=== PATIENT | male | born 1940 | race Caucasian/White ===

== ENCOUNTER 2018-05-29 12:07 | Day surgery (SDC) | payer MEDICARE ==
[~2018-05-29 12:07] MED LIST: SODIUM CHLORIDE 0.9% 1,000 ML IV SCH; ceFAZolin 1,000 MG in SODIUM CHLORIDE 0.9% IRRIGATIO 250 ML IRRIGATION ONE; ceFAZolin IN SWFI 2 GM/20 ML SYRINGE IVP ONE
[2018-05-29] MEDS ORDERED: IOPAMIDOL-370 50ML BTL INJ ONE (16:55)
[2018-05-29] MEDS ORDERED: LIDOCAINE 1% INJ 10MG/ML (20 ML MDV) ONE ×2 (17:02)
[2018-05-29] MEDS: MIDAZOLAM 2 MG/2 ML VIAL IV ONE ×2 (17:08→17:30)
[2018-05-29] MEDS ORDERED: fentaNYL (PF) 50 MCG/ML 2 ML AMP ONE ×2 (17:13→18:45)
[2018-05-29] MEDS: fentaNYL (PF) 50 MCG/ML 2 ML AMP IV ONE ×2 (17:16→18:19)
[2018-05-29] MEDS ORDERED: LIDOCAINE 1% INJ 10MG/ML (20 ML MDV) SQ ONE (17:19)
[2018-05-29] MEDS: LIDOCAINE 1% INJ 10MG/ML (20 ML MDV) SQ ONE ×2 (17:27→17:31)
[2018-05-29] MEDS ORDERED: fentaNYL (PF) 50 MCG/ML 2 ML AMP IV ONE (18:47)
[2018-05-29] MEDS ORDERED: ACETAMINOPHEN IV (For NPO) 1,000 MG in EMPTY BAG 1 BAG IVPB ONE (19:07)
[2018-05-29] MEDS ORDERED: ACETAMINOPHEN TAB 325 MG TAB PO PRN (19:07)
[2018-05-29] MEDS ORDERED: ALBUTEROL NEBULIZED 2.5 MG/3 ML INHALATION PRN (19:09)
--- NOTE | 2018-05-29 19:23 | P.PRLE ---
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 He underwent a biventricular pacemaker with an atrial lead, RV lead as well as a His bundle pacing lead He paces the ventricle primarily why the His bundle and therefore there is simultaneous electrical activation of the right and left ventricles with a narrow QRS Hopefully this device probably improves his exercise capacity but also preserves his LV function in the long run I have added carvedilol 3.125 g twice daily to his current regimen and he should be considered for PC SK 9 inhibitors since he is intolerant of multiple statins Thank you for entrusting me with the care of the patient Warm regards Sincerely Marco Miller
[2018-05-29 19:51] VITALS: BMI 29.9
[2018-05-29] MEDS: CARVEDILOL 3.125 MG TAB PO SCH (20:54)
[2018-05-29] MEDS: ceFAZolin IN SWFI 2 GM/20 ML SYRINGE IVP SCH (20:54)
[2018-05-29] MEDS ORDERED: amLODIPine 10 MG TAB PO SCH (21:00)
[2018-05-29] MEDS ORDERED: LOSARTAN 50 MG TAB PO SCH (21:00)
[2018-05-29 22:45] VITALS: RESP 18
[2018-05-30] MEDS: HYDROcodone/APAP 5-325MG 1 EACH TAB PO PRN ×2 (03:58→12:52)
[2018-05-30] MEDS: ceFAZolin IN SWFI 2 GM/20 ML SYRINGE IVP SCH ×3 (03:59→16:06)
--- NOTE | 2018-05-30 08:02 | P.DS ---
Providers Attending physician: Marco Miller Primary care physician: [facility] Course: Patient is doing well. He is resting comfortably in bed but he has been walking up to the bathroom. No dizziness lightheadedness no palpitations no swelling no bruising over the pacemaker site Blood pressure 153/76. 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 Doshi Also follow up in the device clinic in 5 days Instructions given Patient Condition at Discharge: Stable Plan - Discharge Summary Discharge Rx Participant: Yes New Discharge Prescriptions: New RX: Carvedilol [Coreg] 3.125 mg PO BID #180 tablet No Action Fluticasone/Salmeterol [Advair 100-50 Diskus] 1 puff INHALATION BID Olmesartan Medoxomil [Benicar] 40 mg PO HS amLODIPine [Norvasc] 10 mg PO HS RX: Aspirin 325 mg PO DAILY Albuterol Sulfate [Proair Hfa] 2 puff INHALATION Q6HR PRN PRN Reason: Shortness Of Breath Discharge Medication List Fluticasone/Salmeterol [Advair 100-50 Diskus] 1 puff INHALATION BID 12/26/13 [ History] Olmesartan Medoxomil [Benicar] 40 mg PO HS 12/26/13 [History] Albuterol Sulfate [Proair Hfa] 2 puff INHALATION Q6HR PRN 05/24/18 [History] RX: Aspirin 325 mg PO DAILY 05/24/18 [History] amLODIPine [Norvasc] 10 mg PO HS 05/24/18 [History] RX: Carvedilol [Coreg] 3.125 mg PO BID #180 tablet 05/29/18 [Rx] Follow up Appointment(s)/Referral(s): Duarte Doshi MD [STAFF PHYSICIAN] - 1 Week (Device clinic follow-up in 5 days Follow-up with Dr. Doshi in 6-8 weeks) Activity/Diet/Wound Care/Special Instructions: PATIENT EDUCATION MATERIAL Instructions following a heart rhythm device implant. 1. Keep dressing DRY for 5 DAYS. You may cover the area with Saran or Cling Wrap, prior to a shower. 2. The dressing will be removed in the Device Clinic at [facility]. Absorbable sutures were used to close the wound. 3. Avoid raising the left arm above the shoulder level. 4 week restriction 4. Avoid arm movements, like backscratching, rubbing the head, or pulling on a cord. 4 weeks restriction 5. Gentle range of motion movements of the shoulder, closest to the incision should be performed to avoid a frozen shoulder. (Pendulum exercises of the shoulder) 6. The opposite arm may be used freely. 7. Avoid driving for 7 days. 8. Avoid activities such as golfing, swimming, weed whacking, lifting more than 10 pounds weight, bowling, gymnastics and weight training/lifting. (6 weeks restriction) 9. Activities such as wood chopping with an axe, pull-ups in the gymnasium, power lifting, arc-welding, being close to home induction cooktops will always be a problem. 10. Arm sling is only a reminder not to raise the arm above the head. You do not need to keep the arm completely immobilized. Your free to move the arm and use it and for normal activities. In case of any problems, please call [facility], Horacio Samaniego, @ [phone], Attention: Device Clinic Device clinic follow-up in 5 days Follow-up with primary order to delivery supervisor in 2 months, Dr. Doshi New medication Carvedilol 3.125 mg twice daily
[2018-05-30] MEDS: CARVEDILOL 3.125 MG TAB PO SCH ×2 (08:09→16:54)
--- NOTE | 2018-05-30 08:41 | CE ---
CARDIAC ELECTROPHYSIOLOGY REPORT Bonifacio Hollis is a 78-year-old male patient who has symptomatic 2:1 AV block with bradycardia, tiredness, fatigue and shortness of breath on exertion. He has known underlying coronary artery disease, preserved LV systolic function. He is brought in for biventricular pacemaker implantation since the likelihood of RV pacing is nearly 100% on standard dual-chamber pacemaker. The patient was brought to the EP lab in a fasting state. Written informed consent was obtained prior to the procedure. The left shoulder area was prepped and draped as per protocol and 1% lidocaine was used for local anesthesia. A 4 cm incision was made parallel to the deltopectoral groove, about 1.5 cm medial to it incision carried down to the level of the pectoralis muscle. A subfascial pocket was made. Hemostasis was assured. The left axillary vein was accessed at 3 different points under fluoroscopy and via appropriately-sized introducer sheaths 3 leads were positioned in the right heart. Atrial lead was a Medtronic model #5076, 52 cm in length and serial #[id number]. The P waves were 2.6 mV. Pacing impedance 875 ohms. Pacing threshold 0.6 V at 0.5 milliseconds. Ten volt test negative. The RV lead was positioned in the mid RV septum and screwed in. This was a Medtronic model #5076, 58 cm in length, serial #[id number]. R-waves 10 mV. Pacing impedance 1129 ohms. Pacing threshold 0.5 V at 0.5 milliseconds. The His bundle lead, model #3830, 69 cm in length and serial #[id number] was screwed in the His bundle. The His bundle area was mapped and the lead was screwed in. Selective capture was noted. Threshold 2.1 V at 1 millisecond. Pacing impedance 636 ohms. After the end of the procedure, the threshold was improved to 1.7 V at 1 millisecond. The device was then programmed to DDD mode with an AV delay of 150 milliseconds, HV of about 50 milliseconds with His bundle pacing turned on. The patient tolerated the procedure well without any acute complications. RESULT: Successful biventricular pacemaker implantation with physiologic septal pacing/His bundle pacing for symptomatic 2:1 heart block with bradycardia. MMODL / IJN: [id number] /
[2018-05-30] MEDS ORDERED: ASPIRIN 325 MG TAB PO SCH (09:00)
--- NOTE | 2018-05-30 10:05 | XR ---
EXAMINATION TYPE: XR chest 2V DATE OF EXAM: 05/30/2018 COMPARISON: 12/26/2013 INDICATION: Lead placement check TECHNIQUE: Frontal and lateral views of the chest are obtained. FINDINGS: The heart size is enlarged. The pulmonary vasculature is normal. The lungs are clear. No pneumothorax is evident. Pacemaker is placed. Leads are present. Evaluation of the ventricular lead placement is recommended. IMPRESSION: 1. No pneumothorax post pacemaker placement. 2. Evaluation of lead placement recommended.
[2018-05-30 11:50] VITALS: BP 157/72; PULSE 52; TEMP 97.5
== END 2018-05-30 17:00 | disposition home or self-care (01) ==
LOC: CATHEP 12:07 → 1SOBS 18:58 → CATHEP 05-30 17:00
PROVIDERS: ATTEND Internal Medicine Clinical Cardiac Electrophysiology
DX: I44.1 Atrioventricular block, second degree (principal); I49.5 Sick sinus syndrome; I10 Essential (primary) hypertension; I08.0 Rheumatic disorders of both mitral and aortic valves; I25.110 Atherosclerotic heart disease of native coronary artery with unstable angina pectoris; E78.2 Mixed hyperlipidemia; I25.2 Old myocardial infarction; Z95.5 Presence of coronary angioplasty implant and graft; Z79.82 Long term (current) use of aspirin; Z79.899 Other long term (current) drug therapy; Z79.51 Long term (current) use of inhaled steroids; Z82.49 Family history of ischemic heart disease and other diseases of the circulatory system; Z88.8 Allergy status to other drugs, medicaments and biological substances
CPT/HCPCS: 33208; 71046; C1769 ×4; C1892; C1898; C2621; J2250; J0690 ×3; J2001; J3010; J0131; Q9967

== ENCOUNTER 2019-02-08 11:39 | Day surgery (SDC) | payer MEDICARE ==
[2019-02-06 11:32] VITALS: BMI 29.7
[~2019-02-08 11:39] MED LIST changes: +LACTATED RINGERS 1,000 ML IV SCH; +LIDOCAINE 1% 20 ML VIAL (10MG/ML) FOR IV START INTRADERMA PRN; -SODIUM CHLORIDE 0.9% 1,000 ML IV SCH; -ceFAZolin 1,000 MG in SODIUM CHLORIDE 0.9% IRRIGATIO 250 ML IRRIGATION ONE; -ceFAZolin IN SWFI 2 GM/20 ML SYRINGE IVP ONE
[2019-02-08 12:14] VITALS: TEMP 97.4
[2019-02-08] MEDS ORDERED: PROPOFOL 10 MG/ML 20 ML VIAL IV ONE (12:33)
--- NOTE | 2019-02-08 13:11 | P.OP ---
Date of Procedure: 02/08/19 Preoperative Diagnosis: Positive ColoGuard test Postoperative Diagnosis: Positive ColoGuard test Diverticulosis Procedure(s) Performed: Colonoscopy Surgeon: Livia Torres Pathology: none sent Condition: stable Disposition: same day Indications for Procedure: This is a 79-year-old male that presented to the surgery clinic after finding of a positive cologuard test. He denied any gross blood in his stool. Secondary to this plan was for colonoscopy. Operative Findings: Diverticulosis Cecal cap was unable to be completely visualized Description of Procedure: The patient was brought into the endoscopy suite. He was then placed in left lateral cutis position and adequate sedation was achieved using conscious sedation. A digital rectal exam was performed and mild hemorrhoids were palpated. An endoscope was then placed in the rectum and advanced to the level of the cecum. At this point, multiple attempts were made to get into the cecal cap and cecum, however this was unsuccessful. It was the most proximal 10 cm of the colon that were not clearly visualized. The prep was good. The colonoscope was then slowly withdrawn, examining for any mucosal abnormalities. The ascending, transverse, descending and sigmoid colon were visualized adequately. There were no large obvious neoplastic lesions about the colon. There were no evidence of polyps throughout the colon. There was evidence of diverticulosis scattered throughout the sigmoid colon. Retroflexion was performed in the rectum and mild internal hemorrhage or visible. Excess air was removed, the colonoscope withdrawn and procedure terminated. The patient was then transferred to the recovery unit in stable condition. I will recommend barium enema for full visualization of the cecum for the patient.
[2019-02-08 13:47] VITALS: BP 132/77; PULSE 60; RESP 18
== END 2019-02-08 14:43 | disposition home or self-care (01) ==
LOC: ORWHC2ENDO 11:39
PROVIDERS: ATTEND Surgery
DX: K57.30 Diverticulosis of large intestine without perforation or abscess without bleeding (principal); K64.9 Unspecified hemorrhoids; K62.5 Hemorrhage of anus and rectum; J45.909 Unspecified asthma, uncomplicated; R01.1 Cardiac murmur, unspecified; I25.10 Atherosclerotic heart disease of native coronary artery without angina pectoris; I10 Essential (primary) hypertension; E78.00 Pure hypercholesterolemia, unspecified; N42.9 Disorder of prostate, unspecified; Z68.30 Body mass index [BMI] 30.0-30.9, adult; Z95.0 Presence of cardiac pacemaker; Z95.5 Presence of coronary angioplasty implant and graft; Z80.0 Family history of malignant neoplasm of digestive organs; Z79.82 Long term (current) use of aspirin; Z79.51 Long term (current) use of inhaled steroids; Z79.899 Other long term (current) drug therapy
CPT/HCPCS: 45378; J2704

== ENCOUNTER 2019-02-08 15:10 | Emergency (ER) | payer MEDICARE ==
[2019-02-08 15:16] VITALS: RESP 18; TEMP 97.4
[2019-02-08] MEDS ORDERED: DICYCLOMINE 10 MG CAP PO STA (15:29)
[2019-02-08] MEDS ORDERED: Acetaminophen-Codeine 300-30mg TAB PO STA (15:30)
--- NOTE | 2019-02-08 15:33 | ED ---
Abdominal Pain HPI <Matthias Roach - Last Filed: 02/08/19 18:13> - General Source: patient, family Mode of arrival: ambulatory Limitations: no limitations <Doyle Wan - Last Filed: 02/09/19 01:30> - General Chief Complaint: Abdominal Pain Stated Complaint: abdominal pain-post colonoscopy Time Seen by Provider: 02/08/19 15:18 - History of Present Illness Initial Comments: Patient is a 79-year-old male presenting to emergency Department with chief complaint of abdominal pain. Patient reports he had a colonoscopy performed about 3 hours prior to ED arrival. Patient reports after the procedure he developed abdominal pain that has not resolved since. Patient reports abdominal distention and bloating with abdominal pain mostly located on the right upper and right lower quadrant. Patient reports that he is not able to pass any gas. Patient reports the pain is cramping in nature and constant. Patient denies any nausea or vomiting. (Doyle Wan) - Related Data Home Medications Medication Instructions Recorded Confirmed Fluticasone/Salmeterol [Advair 1 puff INHALATION DAILY 12/26/13 02/08/19 100-50 Diskus] Albuterol Sulfate [Proair Hfa] 2 puff INHALATION Q6HR PRN 05/24/18 02/06/19 Aspirin 325 mg PO DAILY 05/24/18 02/08/19 amLODIPine [Norvasc] 10 mg PO HS 05/24/18 02/06/19 Valsartan 80 mg PO HS 02/06/19 02/06/19 Allergies Allergy/AdvReac Type Severity Reaction Status Date / Time Biondgc-Cua-Sbh Reductase Allergy JOINT PAIN Verified 02/08/19 15:13 Inhibitor Review of Systems ROS Other: All systems not noted in ROS Statement are negative. <Matthias Roach - Last Filed: 02/08/19 18:13> ROS Other: All systems not noted in ROS Statement are negative. <Doyle Wan - Last Filed: 02/09/19 01:30> ROS Statement: Those systems with pertinent positive or pertinent negative responses have been documented in the HPI. Past Medical History Past Medical History: Coronary Artery Disease (CAD), Hypertension Additional Past Medical History / Comment(s): +COLOGARD TEST History of Any Multi-Drug Resistant Organisms: None Reported Past Surgical History: Heart Catheterization With Stent, Pacemaker Additional Past Surgical History / Comment(s): BILAT cataract extraction. COLONOSCOPY Past Anesthesia/Blood Transfusion Reactions: No Reported Reaction Date of Last Stent Placement:: 2006 Type of Cardiac Device: Permanent Pacemaker Device Placement Date:: 05/29/18 Past Psychological History: No Psychological Hx Reported Smoking Status: Never smoker Past Alcohol Use History: None Reported Past Drug Use History: None Reported - Past Family History Mother Family Medical History: No Reported History <Doyle Wan - Last Filed: 02/09/19 01:30> General Exam Limitations: no limitations General appearance: alert, in no apparent distress Head exam: Present: atraumatic, normocephalic, normal inspection Eye exam: Present: normal appearance, PERRL, EOMI Pupils: Present: normal accommodation ENT exam: Present: normal exam, mucous membranes moist, normal external ear exam Neck exam: Present: normal inspection, full ROM Respiratory exam: Present: normal lung sounds bilaterally Cardiovascular Exam: Present: regular rate, normal rhythm, normal heart sounds GI/Abdominal exam: Present: distended, tenderness (Right upper quadrant and right lower quadrant. Negative Mahmood sign positive McBurney point tenderness, negative bacteria, negative psoas, negative rebound, negative Jeff.), normal bowel sounds. Absent: mass, hernia Extremities exam: Present: normal inspection, full ROM Back exam: Present: normal inspection, full ROM. Absent: tenderness Neurological exam: Present: alert, oriented X3 Psychiatric exam: Present: normal affect, normal mood Skin exam: Present: warm, intact, normal color <Doyle Wan - Last Filed: 02/09/19 01:30> Course Vital Signs 02/08/19 02/08/19 15:13 18:18 Temperature 97.4 F L Pulse Rate 82 86 Respiratory 18 18 Rate Blood Pressure 155/90 138/90 O2 Sat by Pulse 93 L 94 L Oximetry Medical Decision Making <Matthias Roach - Last Filed: 02/08/19 18:13> - Medical Decision Making Decision making; this is a 79-year-old male who had a colonoscopy today by Dr. Torres. Patient presents emergency room today feeling bloated. Discomfort is to the right lower quadrant. Patient states she is passing a small amount of gas. Vital signs show pulse of 82 respiratory rate 18 pulse ox 93% room air blood pressure 155/90. X-ray was done and reported by Dr. stanton as having no evidence of free intraperitoneal air, no pneumoperitoneum. I examine the patient is mildly tender with palpation no evidence of acute surgical abdomen. I discussed the case with Dr. Torres, he recommends at this time Dulcolax suppository to assist in the expelling of the gas which is within the intestine. This discussed with the patient. He was advised to return emergency room if he does not have resolution of his discomfort problem. Also advised to call his surgeon in the morning to be any difficulties. Parameters for return to emergency room were explained to the patient has increased pain, sweats, bloody stools. Dr. Roach Patient was given Dulcolax suppository at the surgeon's request. The patient did pass gas and stated he felt better. He was discharged home. Advised follow-up with the surgeon or return emergency room as noted above. Dr. Roach (Matthias Roach) Disposition <Matthias Roach - Last Filed: 02/08/19 18:13> Is patient prescribed a controlled substance at d/c from ED?: No Time of Disposition: 18:05 <Doyle Wan - Last Filed: 02/09/19 01:30> Clinical Impression: Abdominal distention, Abdominal pain Disposition: HOME SELF-CARE Condition: Stable Instructions (If sedation given, give patient instructions): Abdominal Pain (ED) Additional Instructions: Please follow up with GI. Continue taking prescribed medication. Please return to emergency department if symptoms worsen. Referrals: Ganga Nolasco MD [Primary Care Provider] - 1-2 days
--- NOTE | 2019-02-08 16:08 | XR ---
EXAMINATION TYPE: XR KUB DATE OF EXAM: 02/08/2019 3:47 PM CLINICAL HISTORY: Pain after colonoscopy earlier today. TECHNIQUE: Two Upright KUB images of the abdomen are obtained. COMPARISON: None. FINDINGS: Gas prominent small and large bowel loops with scattered air-fluid levels expected after co lonoscopy. No pneumoperitoneum. Slightly elevated right hemidiaphragm. Moderate narrowing in both hip joints is present. Partial visualization of pacemaker wires. IMPRESSION: No pneumoperitoneum.
[2019-02-08] MEDS ORDERED: BISACODYL 10 MG SUPP RECTAL STA (17:01)
[2019-02-08 18:20] VITALS: BP 138/90; PULSE 86
== END 2019-02-08 18:21 | disposition home or self-care (01) ==
LOC: EC 15:10
DX: R14.0 Abdominal distension (gaseous) (principal); R10.31 Right lower quadrant pain; R10.11 Right upper quadrant pain; I25.10 Atherosclerotic heart disease of native coronary artery without angina pectoris; I10 Essential (primary) hypertension; Z88.8 Allergy status to other drugs, medicaments and biological substances; Z79.51 Long term (current) use of inhaled steroids; Z79.82 Long term (current) use of aspirin; Z79.899 Other long term (current) drug therapy; Z95.5 Presence of coronary angioplasty implant and graft
CPT/HCPCS: 74018; 99284

== ENCOUNTER → 2019-05-07 | Outpatient (CLI) | payer MEDICARE ==
[2019-05-07 07:56] LABS: African American GFR (CKD) >90 (>60 ml/min/1.73 sqM); Blood Urea Nitrogen 19 mg/dL (9-20); Non-African American GFR(CKD) 83 (>60 ml/min/1.73 sqM)
--- NOTE | 2019-05-07 09:04 | CT ---
EXAMINATION TYPE: CT brain wo/w con DATE OF EXAM: 05/07/2019 COMPARISON: December 25, 2015 HISTORY: Lt arm tremors CT DLP: 2289.4mGycm CONTRAST: CT scan of the head is performed without and with IV Contrast, patient injected with 100 mL of Isovue 300. Unenhanced followed by contrast enhanced CT of the brain is submitted for evaluation. The ventricles are midline. The ventricles basal cisterns and sulci overlying the cerebral convexities demonstrate mild to moderate enlargement not unusual for this patient's age group. Mild periventricular white mat ter ischemic demyelination noted. Tiny 6 mm enhancing lesion extra-axial in location left parietal re gion image 40 likely reflects a meningioma. There is no evidence for intracranial hemorrhage or extra -axial collection. No mass effects are identified. Visualized bony calvarium is intact. Contrast i s administered and no enhancing lesions are detected. No pathologic enhancement is identified. If s ymptoms persist consider MRI. IMPRESSION: 1. Tiny 6 mm enhancing lesion extra-axial in location left parietal region image 40 likely reflects a meningioma. Age-related atrophic and chronic small vessel ischemic change.
== END | disposition home or self-care (01) ==
LOC: RADCTMAIN 07:01
PROVIDERS: ATTEND Psychiatry & Neurology Neurology
DX: G31.9 Degenerative disease of nervous system, unspecified (principal); G93.89 Other specified disorders of brain; I67.82 Cerebral ischemia; C80.1 Malignant (primary) neoplasm, unspecified; C79.31 Secondary malignant neoplasm of brain
CPT/HCPCS: 82565; 84520; 70470; 36415; Q9967

== ENCOUNTER → 2019-07-02 | Day surgery (SDC) | payer MEDICARE ==
[2019-06-28 10:35] VITALS: BMI 29.7
[~2019-07-02] MED LIST changes: +ALPRAZolam 0.25 MG TAB PO PRN; +ALPRAZolam 0.5 MG TAB PO PRN; +ASPIRIN 325 MG TAB PO STA; -LACTATED RINGERS 1,000 ML IV SCH; -LIDOCAINE 1% 20 ML VIAL (10MG/ML) FOR IV START INTRADERMA PRN; +NITROGLYCERIN SL TABS 0.4 MG TAB SUBLINGUAL PRN; +SODIUM CHLORIDE 0.9% 1,000 ML in EMPTY BAG 1 BAG IV ONE
[2019-07-02 11:15] LABS: Basophils % (A) 0 %; Eosinophils # (A) 0.6 k/uL (0-0.7); Eosinophils % (A) 5 %; HCT 48.9 % (39.0-53.0); HGB 16.2 gm/dL (13.0-17.5); Lymphocytes # (A) 4.2 k/uL (1.0-4.8); Lymphocytes % (A) 34 %; MCH 30.8 pg (25.0-35.0); MCHC 33.2 g/dL (31.0-37.0); MCV 92.8 fL (80.0-100.0); Mean Platelet Volume 8.3; Monocytes # (A) 1.2 k/uL (0-1.0); Monocytes % (A) 9 %; Neutrophils # (A) 6.2 k/uL (1.3-7.7); Neutrophils % (A) 49 %; Platelet Count 282 k/uL (150-450); RBC 5.27 m/uL (4.30-5.90); RDW 12.9 % (11.5-15.5); WBC 12.5 k/uL (3.8-10.6)
[2019-07-02 11:24] LABS: African American GFR (CKD) >90 (>60 ml/min/1.73 sqM); Anion Gap 8 mmol/L; Blood Urea Nitrogen 20 mg/dL (9-20); Calcium 9.6 mg/dL (8.4-10.2); Carbon Dioxide 27 mmol/L (22-30); Chloride 103 mmol/L (98-107); Glucose 87 mg/dL (74-99); Non-African American GFR(CKD) 87 (>60 ml/min/1.73 sqM); Potassium 4.4 mmol/L (3.5-5.1); Sodium 138 mmol/L (137-145)
== END ==
LOC: CATHCVL 10:37
PROVIDERS: ATTEND Internal Medicine Interventional Cardiology
DX: I08.0 Rheumatic disorders of both mitral and aortic valves (principal); Z53.09 Procedure and treatment not carried out because of other contraindication; I10 Essential (primary) hypertension; Z82.49 Family history of ischemic heart disease and other diseases of the circulatory system; Z87.891 Personal history of nicotine dependence; I44.1 Atrioventricular block, second degree; Z79.01 Long term (current) use of anticoagulants; Z79.51 Long term (current) use of inhaled steroids; Z88.8 Allergy status to other drugs, medicaments and biological substances
CPT/HCPCS: 80048; 85025; 93312; 93325

== ENCOUNTER 2019-07-05 | Day surgery (SDC) | payer MEDICARE | END 2019-07-06 11:11 | disposition home or self-care (01) | CPT/HCPCS: 94640; 93312; 93320; 93325; 93454; 80048; 85025; C9600; C1769 ×3; C1887; C1725 ×2; C1874; C1894; J2250; J2001; J3010; J1644; J0583; Q9967 ==

== ENCOUNTER → 2019-07-17 | Day surgery (SDC) | payer MEDICARE ==
[2019-07-12 10:05] VITALS: BMI 29.0
[~2019-07-17] MED LIST changes: +ALBUTEROL NEBULIZED 2.5 MG/3 ML INHALATION PRN; +ASPIRIN 81 MG PO SCH; +ATORVASTATIN 80 MG TAB PO SCH; +ATORVASTATIN 80 MG TAB PO STA; +ATROPINE SULFATE 0.1 MG/ML 10ML SYRINGE IV PRN; +BIVALIRUDIN 250 MG in SODIUM CHLORIDE 0.9% 50 ML IV ONE; +BIVALIRUDIN BOLUS 250 MG/50 ML IV ONE; +CLOPIDOGREL 75 MG TAB ONE; +CLOPIDOGREL 75 MG TAB PO ONE; +CLOPIDOGREL 75 MG TAB PO SCH; +HEPARIN SODIUM 1,000 UN/ML (10ML VL) ONE; +IOPAMIDOL-370 125ML BTL INJ ONE; +LIDOCAINE 1% INJ 10MG/ML (20 ML MDV) ONE; +LIDOCAINE 1% INJ 10MG/ML (20 ML MDV) SQ ONE; +MAG HYDROX/AL HYDROX/SIMETH 30 ML CUP PO PRN; +MIDAZOLAM 2 MG/2 ML VIAL IV ONE; +RX INFO: IV CONTRAST WAS GIVEN 1 EACH MISC MISCELLANE PRN; +SODIUM CHLORIDE 0.9% 1,000 ML IV SCH; +SYMBICORT 80-4.5 MCG INHALER INHALATION SCH; +VALSARTAN 80 MG TAB PO SCH; +VERAPAMIL 2.5 MG/ML 2 ML AMP ONE; +ZOLPIDEM 5 MG TAB PO PRN; +amLODIPine 10 MG TAB PO SCH; +niCARdipine 25 MG/10 ML VIAL ONE
[2019-07-17 08:29] VITALS: RESP 18; TEMP 97.8
[2019-07-17] MEDS: MIDAZOLAM 2 MG/2 ML VIAL IV ONE ×2 (09:42→09:48)
[2019-07-17] MEDS: NITROGLYCERIN 1000MCG/10ML SYRINGE INTRACORON ONE ×2 (09:44→10:11)
--- NOTE | 2019-07-17 10:32 | P.PCN ---
Date of Procedure: 07/17/19 Operative Findings: PERCUTANEOUS CORONARY INTERVENTION Performing physician: Cali Mckenna M.D. [facility] Procedure performed: 1. An atherectomy of the proximal left anterior descending artery using the orbital atherectomy device with 1.25 plastic lydia 2. Successful stenting of the proximal left anterior descending artery using 3.5 x 15 mm Xience CHRISTIAN with an excellent angiographic results Indication: This is a 79-year-old gentleman who sees Dr. Doshi who was diagnosed recently with severe symptomatic aortic stenosis. He is going to undergo transcutaneous aortic valve replacement. He underwent heart catheterization and was found to have severe disease involving the RCA which was stented and also severe disease involving the proximal LAD was calcified/fibrotic lesion. He was brought today to undergo a PCI of the LAD Approach: Right radial artery Complication: None Level of sedation: Moderate with a sedation rate of 46 minutes Procedure description: After obtaining an informed consent the patient was brought to the cardiac general labor forklift operator. The right radial artery was cannulated using micropuncture technique then I placed a 6-Yi sheath. After that anticoagulation was initiated using Angiomax with bolus and drip. After that I did engage the left main using a JL 3.5 guiding catheter. I did wire the LAD using a run-through wire then I did exchange my run-through wire into a ViberWire using microcatheter. After that I did atherectomy of the proximal LAD using the orbital atherectomy device from [facility] were I did one run undergo low-speed only. Subsequently did balloon angioplasty of the proximal LAD using 2 5 x 12 mm balloon. I attempted advancing 3.5 x 15 mm stent over the ViberWire but the stent won't cross the lesion. At that point I did wire the LAD using a sophie wire with a run-through wire then I did balloon angioplasty on the LAD this time using 30 by 12 mm balloon. With that I was able to advance 3.5 x 15 mm Xience CHRISTIAN where the stent was positioned under fluoroscopy guidance and deployed under 10 aleah for 20 seconds. The following angiogram showed excellent angiographic results and the procedure was completed without any complications Postprocedure management: 1. Dual antiplatelet therapy 2. Proceed with transcutaneous aortic valve replacement 3. Follow-up with the patient
[2019-07-17 14:30] VITALS: BP 131/56; PULSE 70
== END ==
LOC: CATHCVL 07:55
PROVIDERS: ATTEND Internal Medicine Interventional Cardiology
DX: I25.10 Atherosclerotic heart disease of native coronary artery without angina pectoris (principal); I35.0 Nonrheumatic aortic (valve) stenosis; I35.1 Nonrheumatic aortic (valve) insufficiency; I10 Essential (primary) hypertension; E78.2 Mixed hyperlipidemia; I44.1 Atrioventricular block, second degree; E66.3 Overweight; Z68.29 Body mass index [BMI] 29.0-29.9, adult; Z95.5 Presence of coronary angioplasty implant and graft; Z95.0 Presence of cardiac pacemaker; Z79.51 Long term (current) use of inhaled steroids; Z79.899 Other long term (current) drug therapy; Z79.01 Long term (current) use of anticoagulants; Z79.82 Long term (current) use of aspirin
CPT/HCPCS: C9602; C1887 ×2; C1725 ×2; C1769 ×2; C1714; C1874; J2250; J2001; J0583; Q9967

== ENCOUNTER → 2020-05-13 | Outpatient (CLI) | payer MEDICARE ==
--- NOTE | 2020-05-13 08:45 | US ---
EXAMINATION TYPE: US prostate transrectal DATE OF EXAM: 05/13/2020 COMPARISON: NONE CLINICAL HISTORY: R39.198 Difficulty urinating, R30.0 Dysuria. Difficulty urinating, dysuria, frequen cy This examination was performed using the transrectal probe. EXAM MEASUREMENTS: Gland Size: 6.0 x 3.8 x 6.1cm Volume: 73.6ml Predicted PSA: 8.83 Actual PSA (if available): not available enlarged, heterogeneous gland. No discrete nodule noted within peripheral zone at this time. Initial images show symmetric slightly bulky bilateral seminal vesicles. Prostate gland is markedly e nlarged inferior to this and heterogeneous in appearance. No discrete hypoechoic nodules identified. IMPRESSION: Findings consistent with BPH. No suspicious nodules. Predicted PSA = volume x 0.12 ng/ml Calculated Volume = 0.5236 x L x W x H
--- NOTE | 2020-05-13 16:30 | US ---
EXAMINATION TYPE: US kidneys/renal and bladder DATE OF EXAM: 05/13/2020 COMPARISON: NONE CLINICAL HISTORY: R39.198 Difficulty urinating, R30.0 Dysuria. difficulty urinating, lower back pain, dysuria, frequency EXAM MEASUREMENTS: Right Kidney: 11.3 x 6.7 x 5.2 cm Left Kidney: 11.5 x 6.1 x 5.0 cm Technical limitations due to overlying bowel content Right Kidney: no evidence of hydronephrosis Left Kidney: no evidence of hydronephrosis Bladder: appears wnl Bilateral Jets seen: no IMPRESSION: 1. Normal renal ultrasound
== END | disposition home or self-care (01) ==
LOC: RADUSWWP 07:27
PROVIDERS: ATTEND Family Medicine
DX: R39.198 Other difficulties with micturition (principal); R30.0 Dysuria; M54.5 Low back pain
CPT/HCPCS: 76770; 76872

== ENCOUNTER 2021-01-04 07:58 | Day surgery (SDC) | payer MEDICARE ==
[~2021-01-04 07:58] MED LIST changes: -ALBUTEROL NEBULIZED 2.5 MG/3 ML INHALATION PRN; -ALPRAZolam 0.25 MG TAB PO PRN; -ALPRAZolam 0.5 MG TAB PO PRN; -ASPIRIN 325 MG TAB PO STA; -ASPIRIN 81 MG PO SCH; -ATORVASTATIN 80 MG TAB PO SCH; -ATORVASTATIN 80 MG TAB PO STA; -ATROPINE SULFATE 0.1 MG/ML 10ML SYRINGE IV PRN; -BIVALIRUDIN 250 MG in SODIUM CHLORIDE 0.9% 50 ML IV ONE; -BIVALIRUDIN BOLUS 250 MG/50 ML IV ONE; -CLOPIDOGREL 75 MG TAB ONE; -CLOPIDOGREL 75 MG TAB PO ONE; -CLOPIDOGREL 75 MG TAB PO SCH; -HEPARIN SODIUM 1,000 UN/ML (10ML VL) ONE; -IOPAMIDOL-370 125ML BTL INJ ONE; -LIDOCAINE 1% INJ 10MG/ML (20 ML MDV) ONE; -LIDOCAINE 1% INJ 10MG/ML (20 ML MDV) SQ ONE; -MAG HYDROX/AL HYDROX/SIMETH 30 ML CUP PO PRN; -MIDAZOLAM 2 MG/2 ML VIAL IV ONE; -NITROGLYCERIN SL TABS 0.4 MG TAB SUBLINGUAL PRN; +PREMYELOGRAM MEDICATION REVIEW 1 EACH MISC PO PRN; -RX INFO: IV CONTRAST WAS GIVEN 1 EACH MISC MISCELLANE PRN; -SODIUM CHLORIDE 0.9% 1,000 ML IV SCH; -SODIUM CHLORIDE 0.9% 1,000 ML in EMPTY BAG 1 BAG IV ONE; -SYMBICORT 80-4.5 MCG INHALER INHALATION SCH; -VALSARTAN 80 MG TAB PO SCH; -VERAPAMIL 2.5 MG/ML 2 ML AMP ONE; -ZOLPIDEM 5 MG TAB PO PRN; -amLODIPine 10 MG TAB PO SCH; -niCARdipine 25 MG/10 ML VIAL ONE
[2021-01-04] MEDS ORDERED: diazePAM 5 MG TAB PO STA (08:45)
[2021-01-04 08:49] VITALS: TEMP 98.2
--- NOTE | 2021-01-04 10:41 | CT ---
EXAMINATION TYPE: CT lumbar spine w con DATE OF EXAM: 01/04/2021 COMPARISON: None. HISTORY: low back pain CT DLP: 1038.2 mGycm Automated exposure control for dose reduction was used. CONTRAST: CT scan of the lumbar is performed with thecal contrast, patient injected with 10 mL of Isovue M300. Enhanced CT of the lumbar spine was performed. Bone and soft tissue window settings are submitted as well as coronal and sagittal reconstructions. There are 5 lumbar-type vertebra. There is grade 1 anterolisthesis L4 and L5. Vertebral body heights are maintained. There is mild disc space narrowing and vacuum disc phenomenon at L1-L2 and L2-L3 leve ls. There is vxsv-tb-ifthfjju disc space narrowing with vacuum disc phenomenon and moderate right lat eral spurring at L3-L4 level. Mild disc space narrowing with vacuum disc phenomenon at L4-L5 level. M dicpalb-tk-ovqsrg disc space narrowing and spurring at L5-S1 level. There is successful intrathecal c ontrast injection but poor opacification of entire lumbar spinal canal making evaluation suboptimal. Additional bsbo-ht-sgxmcaji multilevel anterior lateral spurring is present. Conus medullaris termina racquel at mid L1 level. Axial and sagittal images at T12-L1 level are felt within normal limits. Axial images at L1-L2 level are felt within normal limits. Axial images at L2-L3 level show pekt-ew-evgjsheg broad disc bulge effacing the anterior thecal sac w ith more prominent right foraminal component causing asymmetric mild to moderate right-sided inferior neural foraminal narrowing. There is more mild left-sided inferior neural foraminal narrowing. Axial images at the L3-L4 level show moderate to advanced facet arthropathy effacing the posterior la teral thecal sac. There is moderate broad-based disc bulge effacing the anterior thecal sac. Left-leticia ed neural foramina is patent. There is moderate to severe right-sided neural foraminal narrowing due to marginal and foraminal spurring. There is poor canal residual opacification noted at this level. A P diameter stenosis however is obvious. There is improved visualization of spinal canal at L4 level with more rounded contour. At L4-L5 level there is spondylolisthesis with advanced facet arthropathy and ligament flavum hypertrophy and advan shandra broad disc bulge causing most prominent spinal canal stenosis with abrupt cut off of the spinal c olumn contrast seen sagittal image 34 reference. There is mild to moderate bilateral inferior neural foraminal narrowing. Axial images at the L5-S1 level show unopacified distal lumbar spinal canal. There is moderate facet arthropathy bilaterally. There is moderate right greater than left bilateral neural foraminal narrowi ng. There is moderate calcified plaque of the ectatic abdominal aorta extending into iliac branch vessels . Due to ectatic course aneurysm measurements are difficult, aorta measures 3.3 cm AP diameter axial image 54 for reference. IMPRESSION: Multilevel degenerative changes as detailed above. At L4-L5 level due to spondylolisthesi s and advanced degenerative changes causing severe spinal canal stenosis. Injected intrathecal contra st is abruptly blocked at this level.
[2021-01-04] MEDS ORDERED: Acetaminophen-Codeine 300-30mg TAB PO STA (10:56)
[2021-01-04] MEDS ORDERED: Acetaminophen-Codeine 300-30mg TAB ONE (11:01)
--- NOTE | 2021-01-04 12:36 | FL ---
EXAMINATION TYPE: FL myelogram lumbosacral DATE OF EXAM: 01/04/2021 COMPARISON: NONE HISTORY: Low back pain. Technique and findings: Fluoroscopic assisted myelogram. A total of 3 minutes 11 seconds utilized dur ing procedure. There were 3 Images saved to PACS. Informed consent was obtained and all the patient's questions were answered. The L3-L4 level was loc alized under fluoroscopy. Overlying skin was cleansed with Betadine. Standard sterile technique was u tilized as well as appropriate local anesthesia 1% Lidocaine . Spinal needle was introduced into the thecal sac under fluoroscopic guidance and 10 mL's of Isovue-M 300 was injected after a few attempts . . A few x-ray study confirm satisfactory contrast injection with abrupt cut off or nonpassing at i nferior L4 level and poor opacification or significant narrowing suspected at L3-L4 level. There is u nderlying scoliotic curvature with multilevel moderate disc space narrowing and spurring. Patient tolerated procedure well without any immediate complication. Vital signs monitored before dur ing and after procedure. Patient taken to CT for subsequent CT exam, this report is dictated separate ly. After CT patient's stay short time after the procedure and Hospital and then was discharged home in stable and satisfactory condition. IMPRESSION: Successful myelography lumbar spine.
[2021-01-04 17:41] VITALS: BP 137/69; PULSE 63; RESP 16
== END 2021-01-04 13:57 | disposition home or self-care (01) ==
LOC: RADPROMAIN 07:58
PROVIDERS: ATTEND Orthopaedic Surgery
DX: M47.816 Spondylosis without myelopathy or radiculopathy, lumbar region (principal); M48.061 Spinal stenosis, lumbar region without neurogenic claudication
CPT/HCPCS: 62304; 72132; J2001; Q9967

== ENCOUNTER 2021-02-16 07:47 | Day surgery (SDC) | payer MEDICARE ==
[2021-02-12 15:10] VITALS: BMI 29.0
[~2021-02-16 07:47] MED LIST changes: +LACTATED RINGERS 1,000 ML IV SCH; +LIDOCAINE 1% (10MG/ML) FOR IV START INTRADERMA PRN; -PREMYELOGRAM MEDICATION REVIEW 1 EACH MISC PO PRN
[2021-02-16 08:01] VITALS: TEMP 97.8
[2021-02-16] MEDS ORDERED: LACTATED RINGERS 1,000 ML IV ONE ×3 (08:01→08:44)
[2021-02-16] MEDS ORDERED: methylPREDNISolone ACETATE 40 MG/ML 1 ML VIAL ONE (08:26)
[2021-02-16] MEDS ORDERED: fentaNYL (PF) 50 MCG/ML 2 ML AMP ONE (08:26)
[2021-02-16] MEDS ORDERED: IOPAMIDOL M200 10 ML VIAL ONE (08:26)
[2021-02-16] MEDS ORDERED: MIDAZOLAM 2 MG/2 ML VIAL ONE (08:26)
--- NOTE | 2021-02-16 08:42 | P.PCN ---
Date of Procedure: 02/16/21 Procedure(s) Performed: PREOPERATIVE DIAGNOSIS: 1- Lumbar Degenerative Disc Diseases 2-Lumbar spondylosis with Facet arthropathy without myelopathy 3-Lumbar spinal stenosis POSTOPERATIVE DIAGNOSIS: Same as preop diagnosis. PROCEDURE 1. Lumbar epidural steroid injection under fluoroscopic guidance at the L4-5 level. (Fluoroscopy imaging was available in radiology department) 2. Lumbar epidurogram. ANESTHESIA: Local with 1% lidocaine 3 ml and , moderate sedation with intravenous Versed 2 mg ,and fentanyle 50 Mcg EBL: Minimal PROCEDURE INDICATION: The patient with low back pain and radiculitis symptoms unresponsive to conservative treatment. Fluoroscopy was used to optimize visualization of the needle placement and to maximize safety. PROCEDURE DESCRIPTION / TECHNIQUE: The patient was seen and identified in the preoperative area. Risks, benefits, complications including but not limited to infections ,bleeding ,allergic reaction to the medications ,nerve damage and not complete pain releife , and alternatives were discussed with the patient. The patient agreed to proceed with the procedure and signed the consent. IV was started, and vital signs were stable. Patient was taken to the OR and time out was completed. The patient was placed in the prone position on procedure table and a pillow was placed under the abdomen to reduce lumbar lordosis. The lumbosacral area was prepped and draped in the usual sterile fashion.ere closely monitored during the procedure. Conscious sedation was used during the procedure to decrease patients anxiety. Vital signs was monitered during the entire procedure. Using anterior-posterior fluoroscopy, the L4-5 interlaminar space was identified and the skin over this site was marked and then infiltrated with 1% lidocaine subcutaneously. Subsequently, a 20-gauge Tuohy epidural needle was inserted and advanced toward the epidural space using the ``Loss of resistance technique and guided by AP and lateral fluoroscopy. The correct needle position in the epidural space was verified with the injection of 2 mL of the water soluble contrast dye Isovue 200 contrast and observing an excellent epidurogram with the epidural spread of the dye, after negative aspiration for blood and CSF and in the absence of paresthesias. Again after negative aspiration, a 6 ml mixture containing 40 mg of Depo-medrol , and 2 ml of preservative free Normal Saline, and 2 ml of preservative free lidocaine 1% solution was injected and a washout of epidurogram was seen. Needle was withdrawn intact, skin was cleansed, and bandages were applied. COMPLICATIONS: None DISPOSITION / PLANS: The patient was placed in a supine position and transferred to the recovery area in a stable condition for observation. There was no evidence of lower extremity motor or sensory deficit after the procedure. Patient was discharged from the recovery room after meeting discharge criteria. Home discharge instructions were given to the patient by the staff. The patient was reexamined prior to discharge. The patient will schedule a follow up in the clinic in 2-4 weeks. Patient take Plavix and Elequis secondary to coronary artery disease and patient Held Both medication for 6 days before the procedure, we will restart medication 12 hours after the procedure
[2021-02-16 09:02] VITALS: BP 125/64; PULSE 65; RESP 16
[2021-02-16] MEDS ORDERED: IV FLUID CONTINUATION 800 ML IV ONE (09:02)
--- NOTE | 2021-02-16 09:33 | FL ---
EXAMINATION TYPE: FL guided pain mgmt statistic DATE OF EXAM: 02/16/2021 FLUOROSCOPY Fluoroscopy time of 10 seconds was used during lumbar epidural injection. 1 image/s document/s the misty dixon.
== END 2021-02-16 09:06 | disposition home or self-care (01) ==
LOC: ORPAIN 07:47
PROVIDERS: ATTEND Specialist
DX: M47.816 Spondylosis without myelopathy or radiculopathy, lumbar region (principal); M51.36 Other intervertebral disc degeneration, lumbar region
CPT/HCPCS: 62323; J2250; J1030; J3010; Q9966; 99152

== ENCOUNTER → 2021-03-10 | Outpatient (CLI) | payer MEDICARE ==
[2021-03-10 09:57] VITALS: BP 157/84; PULSE 84; RESP 18; TEMP 97.7
--- NOTE | 2021-03-10 10:12 | P.PN ---
Subjective Progress Note Date: 03/10/21 Bonifacio is an 81-year-old male presenting to clinic today for follow-up appointment after his first lumbar epidural steroid injection at L4 5 on February 16. Bonifacio is a patient of Dr. Tapia's and referred him to our practice. After his initial injection he reported dated greater than 40% relief initially however his pain is beginning to return slowly. He reports his pain is worse with long-term standing, walking and changes in weather. We have still continues to walk several miles a day to help improve his health. Pain is made better with stretching, rest, and interventions. He also takes Motrin as needed. He continues to do his at-home exercises that he was instructed from physical therapy last year. As any bowel or bladder dysfunction, saddle anesthesia, or any other red flag symptoms. He had no other questions or concerns at this time. Objective - Exam Physical Examinations : -Constitutiona : Cooperative , not in acute distress . -HEENT : nech : supple , no Lymphadenopathy , normal thyroid size . : eyes : no ptosis , no icterus, no photophobia . - neurologic : Cranial nerve II to XII intact , no focal neurological deffecit . -psychatric : alert , oriented X 3 , appropriate affect , intact judgment and insight . -Lymphatic : no Lymphadenopathy . - musculoskeltal : Lumber spine moter stegnth lower extremities ,thigh and legs 5/5 Right side , 5/5 Left side deep tendon reflexes : normal Knee Jerk , normal ankle Jerk lumber facet Loading Test =positive Right , positive Left Range of motion of the lumbar spine Flexion 30 degrees, extension 10 degrees strait leg raising test = positive at 20 degree Fabere test= positive Right , and positive LT . Sever tenderness over the Sacroiliac joint on the Right , and Left sides Gaenslen test= positive right ,and positive left . Seated flexion test= positive right ,and positive Left . Distraction test= positive bilaterally Sacroiliac compression test= positive bilaterally Assessment and Plan Assessment: Assessment and plan Assessment: Lumbar spondylosis with facet arthropathy without myelopathy Lumbar degenerative disc disease Lumbar radiculopathy Plan: Lumbar epidural straight injection at L4 5. This would be injection #2 of up to [address] Coats was available by phone for consultation during his visit. I have spent 20 minutes on patient care today. The time was used to review the medical records including relevant urine studies and Prescription history (MAPs), review of the available imaging, evaluation and examination of the patient, coordination of care with the medical staff and if applicable referring physicians, as well as creation of the medical record. - PQRS measures = - Patient's medications are documented in the chart. -Tobacco use is negative -Patient's has received pneumococcal vaccine. -Advanced care planning discussed, patient not eligible. -Opiate contract signed. -Pain positive and follow-up visit/procedure is scheduled. -Patient's blood pressure measured 157/84 , and documented in the record ,and patient will follow up with the primary care. -Patient was not identified as an unhealthy alcohol user Time with Patient: Less than 30
== END ==
LOC: PNWHC3 09:45
PROVIDERS: ATTEND Student in an Organized Health Care Education/Training Program
DX: M47.26 Other spondylosis with radiculopathy, lumbar region (principal); M51.16 Intervertebral disc disorders with radiculopathy, lumbar region; Z87.891 Personal history of nicotine dependence; Z88.8 Allergy status to other drugs, medicaments and biological substances
CPT/HCPCS: 99211

== ENCOUNTER 2021-05-04 07:58 | Day surgery (SDC) | payer MEDICARE ==
[2021-04-27 15:09] VITALS: BMI 28.3
[~2021-05-04 07:58] MED LIST changes: -LIDOCAINE 1% (10MG/ML) FOR IV START INTRADERMA PRN
[2021-05-04 08:19] VITALS: TEMP 97.9
[2021-05-04] MEDS ORDERED: LACTATED RINGERS 1,000 ML IV ONE (08:19)
[2021-05-04] MEDS ORDERED: methylPREDNISolone ACETATE 40 MG/ML 1 ML VIAL ONE (09:13)
[2021-05-04] MEDS ORDERED: fentaNYL (PF) 50 MCG/ML 2 ML AMP ONE (09:13)
[2021-05-04] MEDS ORDERED: IOPAMIDOL M200 10 ML VIAL ONE (09:13)
[2021-05-04] MEDS ORDERED: MIDAZOLAM 2 MG/2 ML VIAL ONE (09:13)
[2021-05-04] MEDS ORDERED: LACTATED RINGERS 1,000 ML IV SCH (09:15)
--- NOTE | 2021-05-04 09:27 | P.PCN ---
Date of Procedure: 05/04/21 Description of Procedure: Procedure: 1. L4-L5 Epidural steroid injection under fluoroscopic guidance #2, 2. Lumbar epidurogram PREOPERATIVE DIAGNOSIS: Lumbar degenerative disc disease, and Lumbar radiculopathy. POSTOPERATIVE DIAGNOSIS: Lumbar degenerative disc disease, and Lumbar ra diculopathy. SURGEON: Sena Christiansen ANESTHESIA: Local with 1% lidocaine, and IV sedation: Versed and fentanyl. EBL: None. Specimen removed: None Fluoroscopic image: saved to electronic medical records PROCEDURE INDICATION: The patient had history of Lumbar degenerative disc disease and Lumbar radiculopathy. Patient had very good pain relief with the previous epidural steroid injection. Failed to conservative therapy. Came here for repeat epidural steroid injection. PROCEDURE DESCRIPTION: The patient was seen and identified in the preoperative area. Risks, benefits, complications, and alternatives were discussed with the patient. The patient agreed to proceed with the procedure and signed the consent. IV was started, and vital signs were stable. Patient was taken to the procedure area, and time out was completed. The patient was placed in the prone position on procedure table and a pillow was placed under the abdomen to reduce lumbar lordosis. The lumbosacral area was prepped and draped in the usual sterile fashion. Critical pause was taken. Vital signs were closely monitored during the procedure. Using anterior-posterior fluoroscopy, L4- L5 interlaminar space was identified, and skin and deeper tissues were localized with 1% lidocaine. Using anterior- posterior fluoroscopy, lateral fluoroscopy, and mseu-[id number] technique, a 20 gauge 3.5 Tuohy epidural needle entered the epidural space. After negative aspiration of CSF and blood with no paresthesias, 1 ml of Cgucli159 contrast dye was injected and an excellent epidurogram was seen. Again after negative aspiration of CSF and blood with no paresthesias, 8 mL of block solution was injected into the epidural space. Block solution contained 80 mg of Depo-Medrol, and 7 mL of preservative-free normal saline. Needle was withdrawn intact, skin was cleansed, and bandages were applied. COMPLICATIONS: None. DISPOSITION / PLANS: The patient was placed in a supine position and transferred to the recovery area in a stable condition for observation. Patient was discharged from the recovery room after meeting discharge criteria. Home discharge instructions given to the patient by the staff. The patient was reexamined prior to discharge. The patient will schedule a follow up in the clinic in 4 weeks.
[2021-05-04] MEDS ORDERED: IV FLUID CONTINUATION 1,000 ML IV ONE (09:30)
[2021-05-04 09:36] VITALS: RESP 16
[2021-05-04 09:57] VITALS: BP 126/69; PULSE 63
--- NOTE | 2021-05-04 10:57 | FL ---
EXAMINATION TYPE: FL guided pain mgmt statistic DATE OF EXAM: 05/04/2021 CLINICAL HISTORY: Low back pain. TECHNIQUE: Fluoroscopy. COMPARISON: None. FINDINGS: Fluoroscopic guidance was provided during pain relief procedure performed by Dr. Christiansen. A total of 3 seconds of fluoroscopic time was utilized during the procedure and two spot images are acquired. Images acquired shows needle localization at L4-L5 level from posterior approach. IMPRESSION: As Above.
== END 2021-05-04 10:14 | disposition home or self-care (01) ==
LOC: ORPAIN 07:58
DX: M43.06 Spondylolysis, lumbar region (principal); M51.16 Intervertebral disc disorders with radiculopathy, lumbar region; I10 Essential (primary) hypertension; I25.10 Atherosclerotic heart disease of native coronary artery without angina pectoris; Z95.0 Presence of cardiac pacemaker; Z95.5 Presence of coronary angioplasty implant and graft; Z95.2 Presence of prosthetic heart valve; Z88.8 Allergy status to other drugs, medicaments and biological substances; Z79.01 Long term (current) use of anticoagulants; Z79.02 Long term (current) use of antithrombotics/antiplatelets
CPT/HCPCS: 62323; J2250; J1030; J3010; Q9966; 99152

== ENCOUNTER 2023-05-29 06:04 | Day surgery (SDC) | payer MEDICARE ==
[2023-05-23 13:37] VITALS: BMI 29.0
[~2023-05-29 06:04] MED LIST changes: +ALPRAZolam 0.25 MG TAB PO PRN; -LACTATED RINGERS 1,000 ML IV SCH; +NITROGLYCERIN SL TABS 0.4 MG TAB SUBLINGUAL PRN
[2023-05-29] MEDS: SODIUM CHLORIDE 0.9% 1,000 ML in EMPTY BAG 1 BAG IV SCH ×2 (06:52→13:57)
[2023-05-29] MEDS ORDERED: VERAPAMIL 2.5 MG/ML 2 ML AMP ONE (07:17)
[2023-05-29] MEDS ORDERED: HEPARIN SODIUM 1,000 UN/ML (10ML VL) ONE (07:17)
[2023-05-29] MEDS ORDERED: LIDOCAINE 1% INJ 10MG/ML (20 ML MDV) ONE (07:17)
[2023-05-29] MEDS: MIDAZOLAM 2 MG/2 ML VIAL IVP ONE ×2 (07:50→07:57)
[2023-05-29] MEDS: LIDOCAINE 1% INJ 10MG/ML (20 ML MDV) SQ ONE (07:58)
[2023-05-29] MEDS: VERAPAMIL SYRINGE (5 MG/10 ML) INTRAARTER ONE (07:59)
[2023-05-29] MEDS: HEPARIN SODIUM 1,000 UN/ML (10ML VL) IVP ONE ×2 (08:01→08:29)
[2023-05-29] MEDS: fentaNYL (PF) 50 MCG/ML 2 ML AMP IVP ONE ×2 (08:15→08:37)
[2023-05-29] MEDS ORDERED: fentaNYL (PF) 50 MCG/ML 2 ML AMP ONE (08:16)
[2023-05-29] MEDS: HYDROmorphone 0.5 MG/0.5 ML SYRINGE IVP ONE ×2 (08:20→08:46)
[2023-05-29] MEDS: IOPAMIDOL-370 100ML BTL INJ ONE ×2 (08:47→09:09)
[2023-05-29] MEDS ORDERED: ALPRAZolam 0.25 MG TAB PO PRN (09:16)
[2023-05-29] MEDS ORDERED: MAG HYDROX/AL HYDROX/SIMETH 30 ML CUP PO PRN (09:17)
[2023-05-29] MEDS ORDERED: NITROGLYCERIN SL TABS 0.4 MG TAB SUBLINGUAL PRN (09:17)
[2023-05-29] MEDS ORDERED: ZOLPIDEM 5 MG TAB PO PRN (09:17)
[2023-05-29] MEDS ORDERED: RX INFO: IV CONTRAST WAS GIVEN 1 EACH MISC MISCELLANE PRN (09:17)
[2023-05-29] MEDS ORDERED: ATROPINE SULFATE 0.1 MG/ML 10ML SYRINGE IV PRN (09:17)
--- NOTE | 2023-05-29 09:25 | P.PCN ---
Date of Procedure: 05/29/23 Operative Findings: CARDIAC CATHETERIZATION AND PERCUTANEOUS CORONARY INTERVENTION PERFORMING PHYSICIAN: Cali Pool MD, [facility] PROCEDURE PERFORMED: 1. Selective right and left coronary angiogram 2. Left heart catheterization 3. Successful stenting of mid RCA using 4.0 x 38 mm Xience CHRISTIAN with an excellent angiographic results 4. Adjunctive use of intravascular imaging 5. Ultrasound guided access of the right radial artery INDICATION: Shortness of breath and abnormal myocardial perfusion imaging stress test COMPLICATION: None APPROACH: Right radial artery LEVEL OF SEDATION: Moderate with the sedation time off 73 minutes PROCEDURE DESCRIPTION: After obtaining an informed consent the patient was brought to the cardiac laborer wharf. The right radial artery was cannulated using puncture technique under ultrasound guidance. A micropuncture wire passed easily then I placed a 6- Nigerien 11 cm sheath of the right radial artery with a give the patient 2 mg of verapamil intra-arterial and a total of 4000 use of heparin intravenous. Selective right and left coronary angiogram performed using JR4 and JL 3.5 catheters. After that left heart catheterization was performed using the JR4 catheter which cross the aortic valve then I did intervene on the right coronary artery. The procedure was completed was no complication SELECTIVE CORONARY ANGIOGRAM: The right coronary artery: Large caliber vessel and a dominant vessel. The RCA is stented from before. There is severe disease involving the mid RCA with a tubular lesion Left main: The left main appears to have mfzp-od-hrrfapbt disease appears to be in the range of 40% involving the ostium The LCx: Large caliber vessel nondominant vessel was mild disease only. Gives rise into an OM branch which appears to have mild disease only. The left anterior descending artery: Large caliber vessel. HEMODYNAMICS: The LVEDP was about 12 mmHg PCI OF THE RCA: Anticoagulation was initiated using heparin with continuous ACT monitoring. Subsequently I did engage the RCA initiated using JR4 guiding catheter. I did wired using a run-through wire. Continuous ACT monitoring was performed throughout the case. Attempted advancing intravascular invasion catheter was unsuccessful the catheter would not make the turn from the guidewire to the RCA. That was unsuccessful in spite of using sophie wire and guide liner. The guide was not getting any support and for that reason attempted engaging the right again using ART guide and pale 0.75 guide and that also was unsuccessful. And for that reason I went back using the JR4 guide and I did engage the RCA and subsequently underwent the RCA using initially a run-through wire and subsequently an Ironman wire. With that I was able to advance intravascular catheter imaging to the right coronary artery and I did manual pullback and that showed a calcified RCA with a diameter and 4 mm. Predilatation was performed using 3.5 mm noncompliant balloon if I deployed 4.0 x 38 mm stent where the stent was positioned under fluoroscopy guidance and deployed under fluoroscopy guidance. Postdilatation was initially performed using 4 mm noncompliant balloon but the imaging again showed that part of the stent was not well expanded but I was able to postdilated using 5 mm noncompliant balloon. The final angiogram showing good angiographic results and the procedure was completed was no complication CONCLUSION: Severe disease involving the mid RCA. The performed successful stenting of the RCA Intermediate to severe disease involving the left anterior descending artery in the midportion with a tubular lesion Ueal-ww-npedmjij disease involving the ostial left main coronary artery POSTPROCEDURE MANAGEMENT: 1. Dual antiplatelet therapy using aspirin and Plavix for at least 6 months 2. Assess the hemodynamic significance of the left main coronary artery and LAD 3. Follow-up with the patient
[2023-05-29] MEDS: ASPIRIN 325 MG TAB PO ONE (13:57)
[2023-05-29 15:08] VITALS: RESP 16
[2023-05-29] MEDS: ALBUTEROL NEBULIZED 2.5 MG/3 ML INHALATION PRN (18:25)
[2023-05-29] MEDS: SYMBICORT 80-4.5 MCG INHALER INHALATION SCH (18:25)
[2023-05-29] MEDS: amLODIPine 5 MG TAB PO SCH (20:44)
[2023-05-29] MEDS: VALSARTAN 160 MG TAB PO SCH (20:44)
[2023-05-29] MEDS: traZODone HCL 50 MG TAB PO SCH (20:44)
[2023-05-30] MEDS: ALPRAZolam 0.5 MG TAB PO PRN (02:02)
[2023-05-30 06:32] LABS: African American GFR (CKD) >90 (>60 ml/min/1.73 sqM); Non-African American GFR(CKD) >90 (>60 ml/min/1.73 sqM)
--- NOTE | 2023-05-30 08:11 | P.DS ---
Providers Attending physician: Cali Pool Consults: 05/29/23 09:17 Consult Physician Routine Consulting Provider: [facility] Consult Reason/Comments: Post Interventional Patient Do you want consulting provider notified?: Already Contacted Primary care physician: [facility] Course: The patient is a pleasant 83-year-old gentleman who underwent yesterday a heart catheterization and was found to have severe disease involving the right coronary artery and he underwent stenting of the right coronary artery with a good angiographic results and was no complication. He was seen and evaluated this morning. He is asymptomatic. He is hemodynamically stable. The right radial site is soft and nontender with no bruises noted. He does have a good right radial pulse. The patient is going to be discharged home on triple therapy and I'm going to follow-up with the patient next week in the office. Also statin would be admitted to the current medical regimen. I will follow-up with the patient next week in the office. Plan - Discharge Summary Discharge Rx Participant: No New Discharge Prescriptions: New Atorvastatin Calcium [Lipitor] 40 mg PO DAILY #90 tab Continue Fluticasone/Salmeterol [Advair 100-50 Diskus] 1 puff INHALATION BID amLODIPine [Norvasc] 5 mg PO HS Albuterol Sulfate [Proair Hfa] 2 puff INHALATION Q6HR PRN PRN Reason: Shortness Of Breath Valsartan 160 mg PO BID Apixaban [Eliquis] 2.5 mg PO BID Clopidogrel [Plavix] 75 mg PO DAILY #90 tab Tamsulosin [Flomax] 0.4 mg PO DAILY ALPRAZolam [Xanax] 0.25 mg PO Q8HR PRN PRN Reason: Anxiety Aspirin 81 mg PO DAILY traZODone HCL [Desyrel] 50 mg PO HS Discharge Medication List Fluticasone/Salmeterol [Advair 100-50 Diskus] 1 puff INHALATION BID 12/26/13 [History] Albuterol Sulfate [Proair Hfa] 2 puff INHALATION Q6HR PRN 05/24/18 [History] amLODIPine [Norvasc] 5 mg PO HS 05/24/18 [History] Valsartan 160 mg PO BID 02/06/19 [History] Apixaban [Eliquis] 2.5 mg PO BID 06/28/19 [History] Clopidogrel [Plavix] 75 mg PO DAILY #90 tab 07/06/19 [Rx] Tamsulosin [Flomax] 0.4 mg PO DAILY 07/23/20 [History] traZODone HCL [Desyrel] 50 mg PO HS 12/23/20 [History] ALPRAZolam [Xanax] 0.25 mg PO Q8HR PRN 01/04/21 [History] Aspirin 81 mg PO DAILY 05/29/23 [History] Atorvastatin Calcium [Lipitor] 40 mg PO DAILY #90 tab 05/30/23 [Rx] Follow up Appointment(s)/Referral(s): Cali Pool MD [STAFF PHYSICIAN] - 1 Week (APPOINTMENT MADE ON May @ 4:30PM ) Patient Instructions/Handouts: Moderate Sedation (DC), After Radial Heart Catheterization (GEN) Activity/Diet/Wound Care/Special Instructions: *NO LIFTING, PUSHING, OR PULLING OVER 5 POUNDS FOR 5 DAYS *NO DRIVING FOR 3 DAYS *YOU CAN REMOVE YOUR DRESSING TOMORROW BUT DO NOT SUBMERSE YOUR PUNCTURE SITE IN WATER FOR A FEW DAYS TO PREVENT INFECTION - SO NO TUB BATHS, POOLS, HOT TUBS, DISHES...ETC *ANY SIGNS OF BLEEDING (HARDNESS, SWELLING, OR EXCESSIVE BRUISING) HOLD DIRECT PRESSURE ON YOUR PUNCTURE SITE - DO NOT DRIVE YOURSELF! EITHER CALL EMS OR HAVE SOMEONE DRIVE YOU!
[2023-05-30 08:36] VITALS: BP 147/83; PULSE 60; TEMP 97.5
[2023-05-30] MEDS: ASPIRIN 81 MG PO SCH (08:59)
[2023-05-30] MEDS: TAMSULOSIN 0.4 MG CAP.ER.24H PO SCH (08:59)
[2023-05-30] MEDS: CLOPIDOGREL 75 MG TAB PO SCH (08:59)
== END 2023-05-30 11:11 | disposition home or self-care (01) ==
LOC: CATHCVL 06:04 → 6NMEDSUR 09:13 → CATHCVL 05-30 11:11
PROVIDERS: ATTEND Internal Medicine Interventional Cardiology
DX: I25.10 Atherosclerotic heart disease of native coronary artery without angina pectoris (principal); Z79.01 Long term (current) use of anticoagulants; Z79.02 Long term (current) use of antithrombotics/antiplatelets; Z79.82 Long term (current) use of aspirin; Z79.899 Other long term (current) drug therapy; Z95.5 Presence of coronary angioplasty implant and graft
CPT/HCPCS: 94640 ×3; 92978; 93458; 76937; 82565; C9600; C1887 ×3; C1769 ×3; C1894; C1753; C1874; C1725 ×3; J2250; J2001; J3010; J1644; J1170; Q9967

== ENCOUNTER 2023-06-16 05:48 | Day surgery (SDC) | payer MEDICARE ==
[~2023-06-16 05:48] MED LIST changes: -ALPRAZolam 0.25 MG TAB PO PRN; +ALPRAZolam 0.5 MG TAB PO PRN; +HEPARIN SODIUM,PORCINE (1 ML) 2,500 UNIT in SODIUM CHLORIDE 0.9% 250 ML IRRIGATION PRN; +HEPARIN SODIUM,PORCINE 10,000 UNIT in SODIUM CHLORIDE 0.9% 1,000 ML IRRIGATION PRN
[2023-06-16] MEDS: SODIUM CHLORIDE 0.9% 1,000 ML IV ONE (06:14)
[2023-06-16] MEDS: ALPRAZolam 0.25 MG TAB PO PRN (06:39)
[2023-06-16 06:48] LABS: Basophils # (A) 0.1 k/uL (0-0.2); Basophils % (A) 1 %; Eosinophils # (A) 0.5 k/uL (0-0.7); Eosinophils % (A) 5 %; HCT 44.8 % (39.0-53.0); HGB 14.7 gm/dL (13.0-17.5); Lymphocytes # (A) 1.9 k/uL (1.0-4.8); Lymphocytes % (A) 20 %; MCH 30.7 pg (25.0-35.0); MCHC 32.8 g/dL (31.0-37.0); MCV 93.6 fL (80.0-100.0); Mean Platelet Volume 8.2; Monocytes # (A) 0.8 k/uL (0-1.0); Monocytes % (A) 8 %; Neutrophils # (A) 6.1 k/uL (1.3-7.7); Neutrophils % (A) 64 %; Platelet Count 275 k/uL (150-450); RBC 4.78 m/uL (4.30-5.90); RDW 12.8 % (11.5-15.5); WBC 9.5 k/uL (3.8-10.6)
[2023-06-16 06:56] LABS: African American GFR (CKD) >90 (>60 ml/min/1.73 sqM); Anion Gap 10 mmol/L; Blood Urea Nitrogen 21 mg/dL (9-20); Calcium 9.2 mg/dL (8.4-10.2); Carbon Dioxide 21 mmol/L (22-30); Chloride 107 mmol/L (98-107); Glucose 106 mg/dL (74-99); Non-African American GFR(CKD) 84 (>60 ml/min/1.73 sqM); Potassium 4.3 mmol/L (3.5-5.1); Sodium 138 mmol/L (137-145)
[2023-06-16] MEDS ORDERED: VERAPAMIL 2.5 MG/ML 2 ML AMP ONE (07:22)
[2023-06-16] MEDS ORDERED: LIDOCAINE 1% INJ 10MG/ML (20 ML MDV) ONE (07:22)
[2023-06-16] MEDS ORDERED: HEPARIN SODIUM 1,000 UN/ML (10ML VL) ONE (07:30)
[2023-06-16] MEDS: MIDAZOLAM 2 MG/2 ML VIAL IVP ONE (07:41)
[2023-06-16] MEDS: LIDOCAINE 1% INJ 10MG/ML (20 ML MDV) SQ ONE (07:45)
[2023-06-16] MEDS: VERAPAMIL SYRINGE (5 MG/10 ML) INTRAARTER ONE (07:46)
[2023-06-16] MEDS: HEPARIN SODIUM 1,000 UN/ML (10ML VL) IV ONE (07:51)
[2023-06-16] MEDS ORDERED: fentaNYL (PF) 50 MCG/ML 2 ML AMP ONE (07:59)
[2023-06-16] MEDS: fentaNYL (PF) 50 MCG/ML 2 ML AMP IVP ONE (08:01)
[2023-06-16] MEDS: NITROGLYCERIN 1000MCG/10ML SYRINGE INTRACORON ONE (08:29)
[2023-06-16] MEDS: IOPAMIDOL-370 100ML BTL INJ ONE (08:32)
[2023-06-16] MEDS ORDERED: ALPRAZolam 0.25 MG TAB PO PRN (08:34)
[2023-06-16] MEDS ORDERED: ASPIRIN 81 MG PO PRN (08:34)
[2023-06-16] MEDS ORDERED: ALBUTEROL NEBULIZED 2.5 MG/3 ML INHALATION PRN (08:34)
[2023-06-16] MEDS ORDERED: NITROGLYCERIN SL TABS 0.4 MG TAB SUBLINGUAL PRN (08:39)
[2023-06-16] MEDS ORDERED: RX INFO: IV CONTRAST WAS GIVEN 1 EACH MISC MISCELLANE PRN (08:39)
[2023-06-16] MEDS ORDERED: MAG HYDROX/AL HYDROX/SIMETH 30 ML CUP PO PRN (08:39)
[2023-06-16] MEDS ORDERED: ATROPINE SULFATE 0.1 MG/ML 10ML SYRINGE IV PRN (08:39)
[2023-06-16] MEDS ORDERED: ZOLPIDEM 5 MG TAB PO PRN (08:39)
--- NOTE | 2023-06-16 08:46 | P.PCN ---
Date of Procedure: 06/16/23 Operative Findings: PERCUTANEOUS CORONARY INTERVENTION Performing physician Cali Pool M.D. Procedure Performed: 1. Successful stenting of the mid LAD using 3.0 x 38 mm Xience drug-eluting stent with an excellent angiographic results. 2. Adjunctive use of Doppler wire and intravascular imaging 3. Selective left coronary angiogram 4. Ultrasound guided access of the right radial artery Indication: This is an 83-year-old gentleman who was diagnosis into severe symptomatic severe coronary artery disease involving the right coronary artery and he underwent PCI of the RCA and also was found to have intermediate disease involving the left main and left anterior descending artery. He was brought today to undergo an FFR of both. Approach: Right radial artery Complications: None Level of Sedation: Moderate with a sedation length of 44 minutes Procedure Discussion: Please refer to diagnosed sick heart catheterization was performed a few weeks ago. After obtaining an informed consent the patient was brought to the cardiac laborer pole crew. The right radial artery was cannulated using puncture technique under ultrasound guidance the micro-rupture wire passed easily then I placed a 6- Dutch sheath at the right radial artery. I gave the patient 2 mg of verapamil intra-arterial and 5000 use of heparin intravenous. Subsequently after that we 0 the Doppler wire and equalized between the Doppler wire and guiding catheter which was JL 3.5 guiding catheter. Subsequently the left main was engaged and the LAD was wired. The wire was advanced distal to the LAD lesion. We did initially an iFR and that came in to be an 0.77. I did a pullback across the LAD lesion and I did Doppler wire measurement for the left main and that came in to be 0.94. We realize that the lesion in the LAD is a flow-limiting and in the left main is not flow-limiting. At that point I did intravascular imaging of the LAD and that showed a diameter around 3.5 mm proximally. I could not advance the catheter to the mid LAD. I did balloon angioplasty initially using 2.5 mm balloon after I did wire the LAD using a sophie wire because the balloon did not cross. Subsequently I did balloon angioplasty using 3 mm noncompliant balloon. After that I was able to deploy 83.0 x 38 mm stent where the stent was positioned under fluoroscopy guidance and deployed under fluoroscopy guidance. Postradiation was performed using 3.5 mm noncompliant balloon. Final angiogram showed excellent angiographic results. There was an intermediate lesion involving the mid to distal LAD distal to the stented segment which I decided to treat medically because it was not flow-limiting and there was no dye staining. The procedure was completed was no complication and the patient tolerated the procedure very well Postprocedure Management: 1. Dual antiplatelet therapy for at least 6 month including aspirin and Plavix 2. Aggressive cholesterol control 3. Risk factors modification
[2023-06-16] MEDS ORDERED: CLOPIDOGREL 75 MG TAB PO SCH (09:00)
[2023-06-16] MEDS ORDERED: amLODIPine 5 MG TAB PO SCH (09:00)
[2023-06-16] MEDS: ASPIRIN 325 MG TAB PO STA (13:57)
[2023-06-16] MEDS: SODIUM CHLORIDE 0.9% 1,000 ML in EMPTY BAG 1 BAG IV SCH ×2 (13:58)
[2023-06-16] MEDS: SYMBICORT 80-4.5 MCG INHALER INHALATION SCH (19:55)
[2023-06-16] MEDS: VALSARTAN 160 MG TAB PO SCH (20:15)
[2023-06-16] MEDS: traZODone HCL 50 MG TAB PO SCH (20:15)
[2023-06-16] MEDS: TAMSULOSIN 0.4 MG CAP.ER.24H PO SCH (20:15)
[2023-06-17 07:13] LABS: African American GFR (CKD) >90 (>60 ml/min/1.73 sqM); Non-African American GFR(CKD) 89 (>60 ml/min/1.73 sqM)
[2023-06-17 07:57] VITALS: BP 133/77; PULSE 61; RESP 18; TEMP 97.7
[2023-06-17] MEDS: CLOPIDOGREL 75 MG TAB PO SCH (08:19)
[2023-06-17] MEDS: amLODIPine 5 MG TAB PO SCH (08:19)
--- NOTE | 2023-06-17 09:16 | DS ---
DISCHARGE SUMMARY BRIEF HISTORY: This is an 83-year-old gentleman who underwent yesterday successful stenting of the left anterior descending artery with good angiographic results from right radial approach. The patient was seen and evaluated this morning. He is asymptomatic, and he is hemodynamically stable. The right radial site is soft and nontender with no bruises. The patient is going to be discharged home on dual anti-platelet therapy, and I will follow up with the patient next week in the office. He cannot be on a statin because he does have statin intolerance. MMODL / IJN: [id number] /
== END 2023-06-17 12:30 | disposition home or self-care (01) ==
LOC: CATHCVL 05:48 → 6NMEDSUR 12:00 → CATHCVL 06-17 12:30
PROVIDERS: ATTEND Internal Medicine Interventional Cardiology
DX: I25.10 Atherosclerotic heart disease of native coronary artery without angina pectoris (principal); I10 Essential (primary) hypertension; F17.210 Nicotine dependence, cigarettes, uncomplicated; Z82.49 Family history of ischemic heart disease and other diseases of the circulatory system; I48.0 Paroxysmal atrial fibrillation; Z95.5 Presence of coronary angioplasty implant and graft; Z79.01 Long term (current) use of anticoagulants; Z79.899 Other long term (current) drug therapy
CPT/HCPCS: 94640 ×2; 94760; 92978; 93799; 76937; 80048; 82565; 85025; C1769 ×3; C9600; C1887; C1894; C1753; C1874; C1725 ×3; J2250; J2001; J3010; J1644; Q9967; J2305

== ENCOUNTER 2023-09-19 11:47 | Emergency (ER) | payer MEDICARE ==
--- NOTE | 2023-09-19 12:35 | ED ---
General Adult HPI - General Chief complaint: Back Pain/Injury Stated complaint: back pain Time Seen by Provider: 09/19/23 11:57 Source: patient, family, RN notes reviewed, old records reviewed Mode of arrival: wheelchair Limitations: no limitations - History of Present Illness Initial comments: Patient is an 83-year-old male present to the emergency department with concern for low back pain. Patient has had chronic low back pain for years. Patient has seen primary care doctor, back doctor and pain clinics. Patient has had procedures previously. Patient states symptoms are similar to previous symptoms. Patient denies any weakness. No loss of sensation. No new incontinence or retention. Patient request pain control. Patient has an appointment with his doctor tomorrow. - Related Data Home Medications Medication Instructions Recorded Confirmed Fluticasone/Salmeterol [Advair 1 puff INHALATION BID 12/26/13 06/16/23 100-50 Diskus] Albuterol Sulfate [Proair Hfa] 2 puff INHALATION Q6HR PRN 05/24/18 06/13/23 amLODIPine [Norvasc] 5 mg PO DAILY 05/24/18 06/16/23 Valsartan 160 mg PO BID 02/06/19 06/16/23 Apixaban [Eliquis] 2.5 mg PO BID 06/28/19 06/13/23 Tamsulosin [Flomax] 0.4 mg PO HS 07/23/20 06/16/23 traZODone HCL [Desyrel] 50 mg PO HS 12/23/20 06/16/23 ALPRAZolam [Xanax] 0.25 mg PO Q8HR PRN 01/04/21 06/16/23 Aspirin 81 mg PO DIRECTED PRN 06/16/23 06/16/23 Celecoxib [CeleBREX] 200 mg PO BID 06/16/23 06/16/23 Previous Rx's Medication Instructions Recorded Clopidogrel [Plavix] 75 mg PO DAILY #90 tab 07/06/19 Cyclobenzaprine [Flexeril] 10 mg PO TID PRN #12 tablet 09/19/23 Allergies Allergy/AdvReac Type Severity Reaction Status Date / Time Gcinpyp-VUF-NnL Reductase Allergy JOINT PAIN Verified 09/19/23 11:54 Inhibitor [Ksyphxu-Shv-Wgw Reductase Inhibitor] Review of Systems ROS Statement: Those systems with pertinent positive or pertinent negative responses have been documented in the HPI. ROS Other: All systems not noted in ROS Statement are negative. Constitutional: Denies: fever Eyes: Denies: eye pain ENT: Denies: ear pain Respiratory: Denies: dyspnea Cardiovascular: Denies: chest pain Gastrointestinal: Denies: abdominal pain Musculoskeletal: Reports: as per HPI, back pain Neurological: Denies: weakness Past Medical History Past Medical History: Asthma, Coronary Artery Disease (CAD), Hypertension, Prostate Disorder Additional Past Medical History / Comment(s): tremors lt arm, heart murmur, enlarged prostate, vericose vein left leg, recent steroids-epidural steroid injection Apr 2023. environmental allergies. back pain History of Any Multi-Drug Resistant Organisms: None Reported Past Surgical History: Heart Catheterization With Stent, Pacemaker Additional Past Surgical History / Comment(s): TAVR heart valve; BILAT cataract extraction. COLONOSCOPY Past Anesthesia/Blood Transfusion Reactions: No Reported Reaction Date of Last Stent Placement:: 2006, 07/05/19 Type of Cardiac Device: Permanent Pacemaker Device Placement Date:: 05/29/18 Past Psychological History: Anxiety Smoking Status: Former smoker - Past Family History Mother Family Medical History: No Reported History Sister(s) Family Medical History: Cancer Additional Family Medical History / Comment(s): brain cancer General Exam Limitations: no limitations General appearance: alert, in no apparent distress Head exam: Present: normocephalic Eye exam: Present: normal appearance Respiratory exam: Present: normal lung sounds bilaterally Cardiovascular Exam: Present: regular rate, normal rhythm Expanded Peripheral pulses: 2+: Posterior Tibialis (R), Posterior Tibialis (L) GI/Abdominal exam: Present: soft. Absent: tenderness, pulsatile mass Extremities exam: Present: normal inspection. Absent: calf tenderness Back exam: Present: tenderness (Mild tenderness lower lumbar) Neurological exam: Present: alert. Absent: motor sensory deficit Psychiatric exam: Present: normal affect, normal mood Course Vital Signs 09/19/23 11:52 Temperature 97.4 F L Pulse Rate 78 Respiratory 20 Rate Blood Pressure 168/76 O2 Sat by Pulse 96 Oximetry Medical Decision Making - Medical Decision Making Was pt. sent in by a medical professional or institution (, PA, TAPE DUPLICATOR, urgent care, hospital, or detention...) When possible be specific @ -No Did you speak to anyone other than the patient for history (EMS, parent, family, police, friend...)? What history was obtained from this source @ -Family is present and helps provide history including history of previous visits and medications. Patient recently started on tramadol Did you review nursing and triage notes (agree or disagree)? Why? @ -I reviewed and agree with nursing and triage notes Were old charts reviewed (outside hosp., previous admission, EMS record, old EKG, old radiological studies, urgent care reports/EKG's, detention records)? Report findings @ -Visits with Dr. Tapia some. Differential Diagnosis (chest pain, altered mental status, abdominal pain women, abdominal pain men, vaginal bleeding, weakness, fever, dyspnea, syncope, headache, dizziness, GI bleed, back pain, seizure, CVA, palpatations, mental health, musculoskeletal)? @ -Differential Back Pain: Strain, zoster, cauda equina syndrome, epidural abscess, vertebral osteomyelitis, discitis, fracture, subluxation, disc herniation, DJD, spinal stenosis, dissection, AAA, pancreatitis, peptic ulcer disease, pyelonephritis, kidney stone, this is not meant to be an all-inclusive list. EKG interpreted by me (3pts min.). @ -As above X-rays interpreted by me (1pt min.). @ -None done CT interpreted by me (1pt min.). @ -None done U/S interpreted by me (1pt. min.). @ -None done What testing was considered but not performed or refused? (CT, X-rays, U/S, labs)? Why? @ -Considered imaging however patient has chronic symptoms What meds were considered but not given or refused? Why? @ -None Did you discuss the management of the patient with other professionals (professionals i.e. , PA, TAPE DUPLICATOR, lab, RT, psych nurse, social welfare administrator, ichthyology teacher, teacher, juvenile justice officer, keycase assembler)? Give summary @ -No Was smoking cessation discussed for >3mins.? @ -No Was critical care preformed (if so, how long)? @ -No Were there social determinants of health that impacted care today? How? (Homelessness, low income, unemployed, alcoholism, drug addiction, transportation, low edu. Level, literacy, decrease access to med. care, group home, rehab)? @ -No Was there de-escalation of care discussed even if they declined (Discuss DNR or withdrawal of care, Hospice)? DNR status @ -No What co-morbidities impacted this encounter? (DM, HTN, Smoking, COPD, CAD, Cancer, CVA, ARF, Chemo, Hep., AIDS, mental health diagnosis, sleep apnea, morbid obesity)? @ -Chronic low back pain Was patient admitted / discharged? Hospital course, mention meds given and route, prescriptions, significant lab abnormalities, going to OR and other pertinent info. @ -Patient presents with chronic back pain. Patient request pain control and discharge. Patient has an appointment tomorrow with his doctor. Undiagnosed new problem with uncertain prognosis? @ -No Drug Therapy requiring intensive monitoring for toxicity (Heparin, Nitro, Insulin, Cardizem)? @ -No Were any procedures done? @ -No Diagnosis/symptom? @ -Low back pain Acute, or Chronic, or Acute on Chronic? @ -Acute on chronic Uncomplicated (without systemic symptoms) or Complicated (systemic symptoms)? @ -Default Side effects of treatment? @ -No Exacerbation, Progression, or Severe Exacerbation? @ -No Poses a threat to life or bodily function? How? (Chest pain, [place], [place], pneumonia, PE, COPD, DKA, ARF, appy, cholecystitis, CVA, Diverticulitis, Homicidal, Suicidal, threat to staff... and all critical care pts) @ -No Disposition Clinical Impression: Low back pain Disposition: HOME SELF-CARE Condition: Stable Instructions (If sedation given, give patient instructions): Acute Low Back Pain (ED) Additional Instructions: Please do follow-up with your doctor tomorrow as planned. Return for loss of control of bowel or bladder, unable to urinate, leg weakness, loss of sensation, worsening symptoms or other concerns. Prescription for muscle exercise been sent to pharmacy. Prescriptions: Cyclobenzaprine [Flexeril] 10 mg PO TID PRN #12 tablet PRN Reason: Pain Is patient prescribed a controlled substance at d/c from ED?: No Referrals: Ganga Nolasco MD [Primary Care Provider] - 1-2 days Time of Disposition: 12:34
[2023-09-19] MEDS: HYDROmorphone 1 MG/ML 1 ML SYRINGE IM STA (12:39)
[2023-09-19] MEDS: ACET/COD 300 MG/30 MG STARTER PACK 6 TAB BTL PO STA (12:39)
[2023-09-19 13:43] VITALS: BP 156/72; PULSE 72; RESP 18; TEMP 98
== END 2023-09-19 13:00 | disposition home or self-care (01) ==
LOC: EC 11:47
DX: M54.50 Low back pain, unspecified (principal); Z87.891 Personal history of nicotine dependence; Z88.8 Allergy status to other drugs, medicaments and biological substances; Z95.0 Presence of cardiac pacemaker
CPT/HCPCS: 99283; 96372; J1170